=== PATIENT | female | born 1990 | race Hispanic/Latino ===

== ENCOUNTER 2017-01-09 22:05 | Emergency (ER) | payer MEDICAID ==
[2017-01-09 22:26] VITALS: BP 117/69; PULSE 69; RESP 16; TEMP 98.2; O2SAT 100
--- NOTE | 2017-01-09 23:15 | ED PDOC ---
Lower Extremity Pain/Injury Time Seen by Provider: 01/09/17 22:29 Chief Complaint (Nursing): Lower Extremity Problem/Injury Chief Complaint (Provider): ankle injury History Per: Patient (26 y/o female with h/o multiple ankle injuries in past here for acute ankle injury today. Patient tripped and fell down stairs. Notes moderate pain in left ankle. Concerned for ligament tear.) Past Medical History Reviewed: Historical Data, Nursing Documentation, Vital Signs Vital Signs: Last Vital Signs Temp 98.2 F 01/09/17 22:21 Pulse 69 01/09/17 22:21 Resp 16 01/09/17 22:21 BP 117/69 01/09/17 22:21 Pulse Ox 100 01/09/17 22:21 - Medical History PMH: Depression, Obstructive Bowel Denies: Diabetes, Hepatitis, HIV, HTN, Chronic Kidney Disease, Seizures, Sexually Transmitted Disease - Surgical History Surgical History: Appendectomy - Family History Family History: States: No Known Family Hx - Home Medications Home Medications: Ambulatory Orders Medication Instructions Recorded Ondansetron ODT [Zofran ODT] 4 mg PO Q6 PRN #16 odt 03/03/16 Linaclotide [Linzess] 290 mcg PO DAILY PRN 08/28/16 ARIPiprazole [Abilify] 5 mg PO DAILY #30 tab 09/01/16 Prazosin HCl [Minipress] 2 mg PO HS #0 cap 09/01/16 Sertraline [Zoloft] 50 mg PO HS #0 tab 09/01/16 Naproxen [Naprosyn Tab] 375 mg PO Q8 PRN #21 tab 01/09/17 - Allergies Allergies/Adverse Reactions: Allergies Allergy/AdvReac Type Severity Reaction Status Date / Time amoxicillin Allergy RASH Verified 01/09/17 22:21 oyster extract Allergy NAUSEA Verified 01/09/17 22:21 Penicillins Allergy RASH Verified 01/09/17 22:21 Sulfa (Sulfonamide Allergy URTICARIA Verified 01/09/17 22:21 Antibiotics) Review of Systems ROS Statement: Except As Marked, All Systems Reviewed And Found Negative Physical Exam - Reviewed Nursing Documentation Reviewed: Yes Vital Signs Reviewed: Yes - Physical Exam Appears: Positive for: Well, Non-toxic, No Acute Distress Head Exam: Positive for: ATRAUMATIC, NORMAL INSPECTION, NORMOCEPHALIC Skin: Positive for: Normal Color, Warm, DRY Eye Exam: Positive for: EOMI, Normal appearance, PERRL ENT: Positive for: Normal ENT Inspection Neck: Positive for: Normal, Painless ROM Cardiovascular/Chest: Positive for: Regular Rate, Rhythm Respiratory: Positive for: CNT, Normal Breath Sounds Gastrointestinal/Abdominal: Positive for: Normal Exam, Bowel Sounds, Soft Back: Positive for: Normal Inspection Extremity: Positive for: Normal ROM, Tenderness (tender posterior left lateral malleoulus. No swelling/ecchymosis noted. ) Neurologic/Psych: Positive for: Alert, Oriented - ECG O2 Sat by Pulse Oximetry: 100 - Progress ED Course And Treament: xry of ankle: neg for fx Placed in air cast and crutches Disposition - Clinical Impression Clinical Impression: Ankle sprain - Patient ED Disposition Is Patient to be Admitted: No - Disposition Referrals: Celso Savage DPM [[facility]] - Disposition: Routine/Home Disposition Time: 23:15 Condition: FAIR Prescriptions: Naproxen [Naprosyn Tab] 375 mg PO Q8 PRN #21 tab PRN Reason: Pain, Moderate (4-7) Instructions: Ankle Sprain (ED) Forms: [facility] ED School/Work Excuse
--- NOTE | 2017-01-10 10:30 | RAD ---
PROCEDURE: Left Ankle Radiographs. HISTORY: ankle injury COMPARISON: None available. FINDINGS: BONES: No acute displaced fracture. JOINTS: No dislocation. SOFT TISSUES: Mild soft tissue swelling. No evidence of radiopaque foreign body. OTHER FINDINGS: None. IMPRESSION: Mild soft tissue swelling. No acute displaced fracture, dislocation, or significant joint effusion identified. If symptoms persist or if there is clinical concern, x-ray follow-up in 7-10 days should be considered.
== END 2017-01-09 23:28 | disposition home or self-care (01) ==
LOC: H.ER 22:05
DX: S99.912A Unspecified injury of left ankle, initial encounter (principal); W10.9XXA Fall (on) (from) unspecified stairs and steps, initial encounter; Y92.89 Other specified places as the place of occurrence of the external cause; Z88.0 Allergy status to penicillin